=== PATIENT | female | born 1955 | race Caucasian/White ===

== ENCOUNTER → 2020-01-28 | Outpatient (REF) | payer BC, MEDICARE ==
[2020-01-28 14:26] LABS: MALB URINE SIEMENS 32.6 MG/L; MAU/CREAT RATIO 26.2 MCG/MG (0.0-30.0)
== END ==
LOC: M LAB REF 13:15
PROVIDERS: ATTEND Physician Assistant
DX: E11.9 Type 2 diabetes mellitus without complications (principal)

== ENCOUNTER → 2020-03-30 | Outpatient (CLI) | payer MEDICARE ==
--- NOTE | 2020-03-30 16:02 | REP ---
MRI CERVICAL SPINE WITHOUT CONTRAST: HISTORY: Neck pain. No comparison cervical spine imaging. Evaluate plate and screws in neck. TECHNIQUE: Sagittal and axial T1- and T2-weighted scans are acquired in the usual fashion with and without fat saturation. Sequences include spin echo, turbo spin-echo, and STIR imaging sequences. MRI FINDINGS: Magnetic field susceptibility artifact is seen emanating from metallic hardware along the ventral aspect of the cervical spine indicating fusion from C5 through T1. Alignment is normal. No bony destructive lesion is seen. No malalignment is seen. Axial and sagittal images at C2-3 demonstrate minimal central disc bulging. No cord compression is seen. At C3-C4, there is right-sided uncovertebral spurring narrowing the medial neural foramen. Some facet hypertrophy is present. There is right posterior disc bulging. At C4-C5, there is diffuse disc bulging and somewhat angular prominent osteophytic ridging compressing the ventral margin of the thecal sac and indenting and compressing the ventral margin of the cord. There is central canal stenosis here exacerbated further by bilateral ligamentum flavum hypertrophy. The midline AP dimension of the thecal sac at this level is 7.5 mm. There is a large intramedullary T2 hyperintense zone within the spinal cord centered about the C4-5 disc level and extending up to the C3-4 disc proximally and down to the approximate level of the C5-6 disc which is fused distally. This is consistent with myelomalacia. Axial images demonstrate that this abnormal cord signal is on the right side of the spinal cord. It is more prominent dorsally than ventrally but spans almost the anteroposterior dimension of the cord on the right side. There is right-sided uncovertebral spurring at C4-5. At C5-6, there is no evidence of recurrent or residual disc protrusion or cord compression. Neural foramina appear adequate. The C6-7 level is fused and otherwise unremarkable. C7-T1 level shows no evidence of disc protrusion, central canal stenosis, or foraminal narrowing. No other intramedullary abnormality is seen. IMPRESSION: 1. Status post ventral discectomy and fusion plating C5 through T1. 2. Degenerative disc disease with posterior osteophytic ridging and diffuse disc bulging at C4-5. In combination with dorsal ligamentum flavum hypertrophy at this level, there is mild to moderate central canal stenosis and ventral aspect cord compression. 3. There is a large myelomalacia lesion within the right side of the spinal cord centered at the C4-5 level. 4. There is right-sided uncovertebral spurring and some neural foraminal narrowing at C3-4. Electronically Signed by Bean Garcia MD 03/30/2020 05:31 P
== END ==
LOC: M RAD 13:25
PROVIDERS: ATTEND Orthopaedic Surgery
DX: M50.321 Other cervical disc degeneration at C4-C5 level (principal); M25.78 Osteophyte, vertebrae

== ENCOUNTER → 2020-06-07 | Outpatient (CLI) | payer MEDICARE ==
[2020-06-07 08:55] LABS: BASO % 0.7 % (0.0-1.0); EOS # 0.1 10^3/uL (0.0-0.5); EOS % 2.3 % (0.0-3.0); HEMATOCRIT 39.9 % (36.0-47.0); HEMOGLOBIN 12.8 g/dl (12.0-15.5); LYMPH # 2.5 10^3/uL (1.5-5.0); LYMPH % 40.6 % (24.0-44.0); MEAN CORPUSCULAR HEMOGLOBIN 30.9 pg (27.0-33.0); MEAN CORPUSCULAR HGB CONC 32.1 g/dl (32.0-36.5); MEAN CORPUSCULAR VOLUME 96.4 fl (80.0-96.0); MONO # 0.5 10^3/uL (0.0-0.8); MONO % 8.9 % (0.0-5.0); NEUTROPHILS # 2.9 10^3/uL (1.5-8.5); NEUTROPHILS % 47.2 % (36.0-66.0); PLATELET COUNT, AUTOMATED 215 10^3/uL (150-450); RED BLOOD COUNT 4.14 10^6/uL (4.00-5.40); WHITE BLOOD COUNT 6.1 10^3/uL (4.0-10.0)
[2020-06-07 10:21] LABS: ALBUMIN 3.8 GM/DL (3.2-5.2); ALT/SGPT 24 U/L (12-78); BILIRUBIN,TOTAL 0.4 MG/DL (0.2-1.0); BLOOD UREA NITROGEN 32 MG/DL (7-18); CALCIUM LEVEL 9.2 MG/DL (8.8-10.2); CARBON DIOXIDE LEVEL 28 MEQ/L (21-32); CHLORIDE LEVEL 104 MEQ/L (98-107); CHOLESTEROL LEVEL 177 MG/DL (<200); CHOLESTEROL RISK RATIO 3.687 (<5); CREATININE FOR GFR 0.86 MG/DL (0.55-1.30); FREE T4 1.29 NG/DL (0.76-1.46); GLOMERULAR FILTRATION RATE > 60.0 (>45); GLUCOSE, FASTING 95 MG/DL (70-100); HDL CHOLESTEROL 48 MG/DL (>40); LDL CHOLESTEROL 65 MG/DL (<100); NON-HDL-C 129 MG/DL; POTASSIUM SERUM 4.7 MEQ/L (3.5-5.1); SODIUM LEVEL 139 MEQ/L (136-145); THYROID STIMULATING HORMONE 0.194 uIU/ML (0.358-3.740); TRIGLYCERIDES LEVEL 320 MG/DL (<150)
[2020-06-07 12:59] LABS: HEMOGLOBIN A1c 5.7 %
== END ==
LOC: M LAB 08:19
PROVIDERS: ATTEND Physician Assistant
DX: E03.9 Hypothyroidism, unspecified (principal); E11.9 Type 2 diabetes mellitus without complications; E78.2 Mixed hyperlipidemia; F33.9 Major depressive disorder, recurrent, unspecified

== ENCOUNTER → 2020-08-08 | Outpatient (CLI) | payer MEDICARE ==
[2020-08-08 15:29] LABS: BASO % 0.6 % (0.0-1.0); EOS # 0.1 10^3/uL (0.0-0.5); EOS % 1.2 % (0.0-3.0); HEMATOCRIT 42.8 % (36.0-47.0); HEMOGLOBIN 13.9 g/dl (12.0-15.5); LYMPH # 2.1 10^3/uL (1.5-5.0); MEAN CORPUSCULAR HEMOGLOBIN 31.4 pg (27.0-33.0); MEAN CORPUSCULAR HGB CONC 32.5 g/dl (32.0-36.5); MEAN CORPUSCULAR VOLUME 96.6 fl (80.0-96.0); MONO # 0.6 10^3/uL (0.0-0.8); MONO % 8.7 % (0.0-5.0); NEUTROPHILS % 58.2 % (36.0-66.0); PLATELET COUNT, AUTOMATED 244 10^3/uL (150-450); RED BLOOD COUNT 4.43 10^6/uL (4.00-5.40); WHITE BLOOD COUNT 6.9 10^3/uL (4.0-10.0)
[2020-08-08 15:38] LABS: INR 0.9; PROTHROMBIN TIME 12.4 SECONDS (11.8-14.0)
[2020-08-08 15:51] LABS: BLOOD UREA NITROGEN 34 MG/DL (7-18); CALCIUM LEVEL 9.5 MG/DL (8.8-10.2); CARBON DIOXIDE LEVEL 27 MEQ/L (21-32); CHLORIDE LEVEL 104 MEQ/L (98-107); CREATININE FOR GFR 0.91 MG/DL (0.55-1.30); GLOMERULAR FILTRATION RATE > 60.0 (>45); GLUCOSE, FASTING 93 MG/DL (70-100); POTASSIUM SERUM 4.6 MEQ/L (3.5-5.1); SODIUM LEVEL 138 MEQ/L (136-145)
== END ==
LOC: M LAB 14:58
PROVIDERS: ATTEND Physician Assistant Medical
DX: E11.9 Type 2 diabetes mellitus without complications (principal)

== ENCOUNTER → 2021-01-27 | Outpatient (CLI) | payer MEDICARE ==
[2021-01-27 14:04] LABS: BASO % 0.8 % (0.0-1.0); EOS # 0.1 10^3/uL (0.0-0.5); EOS % 2.5 % (0.0-3.0); HEMATOCRIT 39.8 % (36.0-47.0); HEMOGLOBIN 12.7 g/dl (12.0-15.5); LYMPH # 1.9 10^3/uL (1.5-5.0); LYMPH % 35.4 % (24.0-44.0); MEAN CORPUSCULAR HEMOGLOBIN 30.8 pg (27.0-33.0); MEAN CORPUSCULAR HGB CONC 31.9 g/dl (32.0-36.5); MEAN CORPUSCULAR VOLUME 96.6 fl (80.0-96.0); MONO # 0.4 10^3/uL (0.0-0.8); MONO % 6.9 % (2.0-8.0); NEUTROPHILS # 2.8 10^3/uL (1.5-8.5); NEUTROPHILS % 54.2 % (36.0-66.0); RED BLOOD COUNT 4.12 10^6/uL (4.00-5.40); WHITE BLOOD COUNT 5.2 10^3/uL (4.0-10.0)
[2021-01-27 14:23] LABS: PLATELET COUNT, AUTOMATED 203 10^3/uL (150-450)
[2021-01-27 14:39] LABS: MALB URINE SIEMENS 59.7 MG/L; MAU/CREAT RATIO 36.1 MCG/MG (0.0-30.0)
[2021-01-27 14:44] LABS: ALBUMIN 3.7 GM/DL (3.2-5.2); BILIRUBIN,TOTAL 0.5 MG/DL (0.2-1.0); CALCIUM LEVEL 9.4 MG/DL (8.8-10.2); CREATININE FOR GFR 1.06 MG/DL (0.55-1.30); GLOMERULAR FILTRATION RATE 55.2 (>45); POTASSIUM SERUM 4.5 MEQ/L (3.5-5.1)
[2021-01-27 14:45] LABS: FREE T4 1.28 NG/DL (0.76-1.46); THYROID STIMULATING HORMONE 0.707 uIU/ML (0.358-3.740)
[2021-01-27 15:21] LABS: HEMOGLOBIN A1c 5.7 %
== END ==
LOC: M LAB 12:39
PROVIDERS: ATTEND Physician Assistant
DX: F33.9 Major depressive disorder, recurrent, unspecified (principal); E11.9 Type 2 diabetes mellitus without complications

== ENCOUNTER → 2021-05-17 | Outpatient (CLI) | payer MEDICARE ==
[~2021-05-17] MED LIST: ISOVUE-300 61% 50ML VIAL As Ordered ONE; LIDOCAINE 1% MDV 20ML VIAL As Ordered ONE; TRIAMCINOLONE ACETONIDE SUSP 40 MG/ML VIAL (J3301) As Ordered ONE
--- NOTE | 2021-05-17 16:47 | REP ---
INDICATION: OA RT HIP. COMPARISON: None TECHNIQUE: The procedure was performed by ALVARO Pace, under the direct supervision of Dr. Castro. The benefits and risks of the procedure were explained to the patient, and an informed consent was obtained. Directly prior to the start of the procedure, a formal time-out was completed in the procedure room. The right femoral neck joint space was localized using fluoroscopic guidance. The skin was prepped and draped in a sterile fashion. Approximately 5 mL of 1% Lidocaine 10 mg/ml was used as a local anesthetic. Using fluoroscopic guidance, a #22 gauge spinal needle was inserted and advanced into the right femoral neck joint space. Approximately 1 mL of Isovue 300 was injected to verify placement. Six mL of a solution containing 5 mL 1% lidocaine 10 mg/ml and 1 mL Kenalog 40 milligrams/milliliter was injected into the joint space. The needle was removed and hemostasis was achieved. FINDINGS: The patient tolerated the procedure well and there were no immediate complications. IMPRESSION: 1. Fluoroscopically guided right hip intra-articular pain injection. 0.1 minutes of fluoroscopy time was utilized for this procedure. Some fluoroscopic images are performed with last image hold technology. These images require no additional radiation. <Electronically signed by Kimberly Cardona > 05/17/21 125 <Electronically signed by Anil Castro > 05/17/21 [id number]
== END ==
LOC: M RADPRO 11:14
PROVIDERS: ATTEND Orthopaedic Surgery
DX: M16.11 Unilateral primary osteoarthritis, right hip (principal)
CPT/HCPCS: 20610; 77002; J3301; Q9967

== ENCOUNTER → 2021-09-21 | Outpatient (CLI) | payer MEDICARE ==
[2021-09-21 14:11] LABS: HEMATOCRIT 43.1 % (36.0-47.0); HEMOGLOBIN 14.3 g/dl (12.0-15.5); MEAN CORPUSCULAR HEMOGLOBIN 32.6 pg (27.0-33.0); MEAN CORPUSCULAR HGB CONC 33.2 g/dl (32.0-36.5); MEAN CORPUSCULAR VOLUME 98.4 fl (80.0-96.0); PLATELET COUNT, AUTOMATED 216 10^3/uL (150-450); RED BLOOD COUNT 4.38 10^6/uL (4.00-5.40); WHITE BLOOD COUNT 8.7 10^3/uL (4.0-10.0)
[2021-09-21 14:22] LABS: INR 0.99; PROTHROMBIN TIME 13.5 SECONDS (12.7-14.5)
--- NOTE | 2021-09-21 14:44 | REP ---
INDICATION: R HIP OSTEOARTHRITIS-LAB AND EKG AFTER. COMPARISON: None. TECHNIQUE: PA and lateral FINDINGS: The heart size is borderline to mildly enlarged. The lung see are clear. The pleural angles are sharp. The osseous structures are within normal limits. IMPRESSION: There is no acute cardiopulmonary disease. Borderline versus mildly enlarged heart. <Electronically signed by Candido Zaidi > 09/21/21 [id number]
[2021-09-21 14:51] LABS: ALBUMIN 3.7 GM/DL (3.2-5.2); ALT/SGPT 26 U/L (12-78); BILIRUBIN,TOTAL 0.4 MG/DL (0.2-1.0); BLOOD UREA NITROGEN 28 MG/DL (7-18); CALCIUM LEVEL 9.9 MG/DL (8.8-10.2); CARBON DIOXIDE LEVEL 31 MEQ/L (21-32); CHLORIDE LEVEL 105 MEQ/L (98-107); CREATININE FOR GFR 0.94 MG/DL (0.55-1.30); GLOMERULAR FILTRATION RATE > 60.0 (>45); GLUCOSE, FASTING 110 MG/DL (70-100); POTASSIUM SERUM 4.1 MEQ/L (3.5-5.1); SODIUM LEVEL 138 MEQ/L (136-145)
[2021-09-21 15:20] LABS: ERYTHROCYTE SEDIMENTATION RATE 13 mm/hr (0-30)
--- NOTE | 2021-09-23 17:28 | ECGEPIP ---
[facility] Test Date: 2021-09-21 Pat Name: GUS CASTILLO Department: Room: - Gender: Female [employer] Developer: HAILEY : [id number] Requested By: Davon Cortez Order Number: [id number] Reading MD: Enrique Abreu Measurements Intervals [place] Rate: 66 P: 57 MT: 140 QRS: -9 QRSD: 72 T: 51 QT: 388 QTc: 406 Interpretive Statements Normal sinus rhythm Low voltage QRS, chest leads Poor R wave progression Inferior infarct, age undetermined Electronically Signed on 09-23-2021 17:28:09 EDT by Enrique Abreu
== END ==
LOC: M RAD 11:55
PROVIDERS: ATTEND Orthopaedic Surgery
DX: Z01.818 Encounter for other preprocedural examination (principal); M16.11 Unilateral primary osteoarthritis, right hip

== ENCOUNTER → 2021-09-26 | Outpatient (REF) | payer MEDICARE | LOC: M LAB REF 09:35 | PROVIDERS: ATTEND Nurse Practitioner Family | DX: R19.7 Diarrhea, unspecified (principal) ==

== ENCOUNTER 2021-11-22 08:32 | Emergency (ER) | payer MEDICARE ==
[~2021-11-22] VITALS: Ht 154.9 cm; Wt 64.5 kg
[2021-11-22] MEDS ORDERED: PIOG1TAB37 (08:47)
[2021-11-22] MEDS ORDERED: ATOR80TA59 (08:47)
[2021-11-22] MEDS ORDERED: HYDR-4571 (08:47)
[2021-11-22] MEDS ORDERED: GABA600T4 (08:47)
[2021-11-22] MEDS ORDERED: NADO20TA (08:47)
[2021-11-22] MEDS ORDERED: OMEP-218 (08:47)
[2021-11-22] MEDS ORDERED: VENL37TA (08:47)
[2021-11-22] MEDS ORDERED: LEVO112T2 (08:47)
[2021-11-22] MEDS ORDERED: TRIA37.53 (08:47)
--- NOTE | 2021-11-22 10:13 | REP ---
INDICATION: swelling r/o DVT COMPARISON: None. TECHNIQUE: Real time compression and duplex Doppler interrogation of the right lower extremity deep venous system is performed, including the left common femoral vein.Compression of the right peroneal and posterior tibial veins is performed. FINDINGS: The right common femoral, superficial femoral and popliteal veins are fully compressible with transducer pressure and demonstrate normal spontaneous and phasic flow, without evidence of deep venous thrombosis.The left common femoral vein demonstrates no thrombus.The right calf veins could not be visualized due to soft tissue edema. IMPRESSION: No evidence of deep venous thrombosis of the right lower extremity femoral popliteal venous system. <Electronically signed by Anil Castro > 11/22/21 [id number]
[2021-11-22 10:55] VITALS: BP 164/72
== END 2021-11-22 10:56 | disposition home or self-care (01) ==
LOC: M ED 08:32
DX: L81.9 Disorder of pigmentation, unspecified (principal); Z96.641 Presence of right artificial hip joint; I25.10 Atherosclerotic heart disease of native coronary artery without angina pectoris; E11.9 Type 2 diabetes mellitus without complications; E78.5 Hyperlipidemia, unspecified; I10 Essential (primary) hypertension; K21.9 Gastro-esophageal reflux disease without esophagitis; J30.89 Other allergic rhinitis